=== PATIENT | female | born 1965 | race Caucasian/White ===

== ENCOUNTER 2016-09-07 11:37 | Inpatient (IN) | payer OTHER ==
--- NOTE | ~2016-09-07 | OP ---
Record Of Operation [facility] [address] [place]. [address] NAME: YAW BOOKER : 63 STATUS : ADM IN PAT#: [id number] AGE: 51 ADM/REG DATE : 09/07/16 MR#: [id number] REPORT SERV DATE: 09/12/16 DICTATED BY: BEBE CORTEZ DATE: 09/12/16 REPORT STATUS : Draft TRANSCRIBED BY: MODL DATE: 09/12/16 DATE OF PROCEDURE: 09/12/2016 PROCEDURE: Cardiopulmonary resuscitation. INDICATION FOR PROCEDURE: The patient was found choking and altered by the nursing staff, joann blue was called. PROCEDURE NOTE: Joann pearce was called and MD arrival was almost immediate at 8:20 in the morning. At that time, the patient had sinus rhythm, pulse of 80, and about 96% saturation. The patient was then suctioned from the mouth. There was significant amount of breakfast at the back of the throat. After about a minute and half, we were able to clear the throat, Ambu bag mask ventilation was given. The patient never lost a pulse. Her heart rate stayed around 70s throughout the procedure. After she had an arterial blood gas done which showed that the pH was 7.27, pCO2 of 12.7, pO2 was 269. The patient was transferred down to the CT scanner for stat head and chest in case the patient aspirated and/or had a stroke as the patient had on report by the nursing staff a change in mental status prior to this due to hypoglycemia. Down in the CT scanner, at 8:45, the patient was noted to go into a seizure, the patient was intubated by Dr. Blair with a size 7.5 ET tube and was given 4 mg of Ativan, supervised by the MD staff for acute seizure. The patient never lost a pulse throughout the procedure either through intubation and/or cardiopulmonary resuscitation. The patient was transferred to the intensive care unit. OUTCOME: Successful respiratory resuscitation of this patient. The patient sustained a seizure throughout the course and required intubation. Increased level of care to ICU level from floor. LUIS FQ/TYLOR Bebe Cortez MD / [id number] CC: Colleen Noble M.D.
--- NOTE | ~2016-09-07 | CN ---
Consultation Report [facility] [address] [place]. [address] NAME: YAW BOOKER : 63 STATUS : ADM IN PAT#: [id number] AGE: 51 ADM/REG DATE : 09/07/16 MR#: [id number] REPORT SERV DATE: 09/09/16 DICTATED BY: VIDHYA TAVERA III DATE: 09/08/16 REPORT STATUS : Draft TRANSCRIBED BY: MODYannick DATE: 09/08/16 DATE OF CONSULTATION: 09/08/2016 HISTORY OF PRESENT ILLNESS: The patient is a 51-year-old obese, diabetic white female with what she says is a three-to four-month history of ulcer development in her left foot in the area from previous transmetatarsal amputation, which was done secondary to severe infection and osteomyelitis in the past. She is very neuropathic and her diabetic control has been extremely poor. The patient has been followed by a member service representative named Dr. Stewart for the last few months and has not been successful in healing her ulceration. The patient had very little pain, but noted fever and swelling in the distal left foot, as well as in her lower extremities bilaterally. PAST MEDICAL HISTORY: She has had a history of seizures, followed by Dr. Holly Rios; history of hypertension, history of severe diabetes, very poorly controlled, and history of hypothyroidism. She had the transmetatarsal amputation back in the summer of 2014 and the wound did heal completely and she was discharged from the wound healing clinic after complete healing of the wound to be followed up by her primary care physician. Apparently, she grew Pseudomonas and Enterococcus and a culture done earlier this month. Unremarkable other than the items stated. MEDICATIONS: The patient is presently on vancomycin and Zosyn. ALLERGIES: THE PATIENT DENIES ALLERGIES, ALTHOUGH THERE WAS SOME QUESTION THAT SHE MIGHT HAVE A SULFA ALLERGY. SOCIAL HISTORY: She lives alone, but has friends who help her. She does not smoke or drink or use illegal drugs, but has limited mental capacity. FAMILY HISTORY: Was not contributory. REVIEW OF SYSTEMS: Consistent with what she says is a fairly stable weight and she is able to walk with her transmetatarsal amputation and has been walking recently and has a special shoe which had been provided for her to assist. She uses a cane or walker and wheelchair to assist her with ambulation. PHYSICAL EXAMINATION: GENERAL: The patient is a well-developed female, in no distress. She is alert and oriented and is a very poor historian. VITAL SIGNS: Unremarkable with her T-max of 99.8 since admission. HEENT: Unremarkable. NECK: Supple. CHEST: Relatively clear with diminished inspiratory effort. Consultation Report [facility] [address] [facility] [address] NAME: YAW BOOKER : 63 STATUS : ADM IN [facility]#: [id number] AGE: 51 ADM/REG DATE : 09/07/16 MR#: [id number] REPORT SERV DATE: 09/09/16 DICTATED BY: VIDHYA TAVERA III DATE: 09/08/16 REPORT STATUS : Draft TRANSCRIBED BY: TYLOR DATE: 09/08/16 HEART: Regular rate and rhythm. ABDOMEN: Obese and nontender. EXTREMITIES: Her right foot to be unremarkable with the exception of neuropathy with good pulses. The left foot shows a past surgical history with a modified transmetatarsal amputation, which was done in an oblique fashion secondary to progressed osteomyelitis in the more lateral metatarsals necessitating the amputation more proximally on the lateral aspect, but she has an ulceration in the central portion of the transmetatarsal incision that is otherwise well healed except for the ulcerated area. The ulcer in the central portion of this fairly thick callused tissue is 0.9 x 0.7 with a 0.8 depth, filled with a fair amount of slough. She had significant neuropathy with no tenderness and good pulses. She also, over the left anterior ankle and foot, has some abrasions that are red and two different linear transverse areas presumably from bandages or braces or her footwear that are not ulcerated, but clearly areas of abrasion and pressure change. These areas are most proximal with just at the level of the malleolus, which was on the anterior surface that was 3.5 x 6 cm and one distal more over the crease between the ankle and the foot dorsally that was 2.9 x 7.5, neither of which has a depth due to superficiality. IMPRESSION: The patient has a chronic ulceration in the transmetatarsal amputation site of the left foot likely related to osteomyelitis in a patient with poor control questionable nutritional status and MRI has been ordered and is pending. The MRI will help determine what further steps may need to be taken. In the mean time, we will order Iodosorb gel to place in the ulcer and pack with Aquacel and Silvadene to apply to the abraded areas over the anterior ankle foot region. The patient will require continued antibiotics based on the cultures which have been followed by the infectious disease service, Dr. Tejinder Menjivar, better diabetic control and local care, as well as potential debridement which will be determined by the findings of the MRI. RB/MODL Vidhya Tavera III, M.D. / [id number] CC: Estefania Valle M.D. [facility]
--- NOTE | ~2016-09-07 | OP ---
Record Of Operation [facility] [address] [place]. [address] NAME: YAW BOOKER : 63 STATUS : ADM IN [facility]#: [id number] AGE: 51 ADM/REG DATE : 09/07/16 MR#: [id number] REPORT SERV DATE: 09/12/16 DICTATED BY: JED BLAIR DATE: 09/12/16 REPORT STATUS : Draft TRANSCRIBED BY: MODL DATE: 09/12/16 DATE OF PROCEDURE: 09/12/2016 PROCEDURE: Intubation. INDICATION: Respiratory arrest. DESCRIPTION OF PROCEDURE: Pre-oxygenated with 100% oxygen and monitored by blood pressure, EKG, and pulse oximetry. A #7.5 endotracheal tube placed under direct laryngoscope vision to 21 cm. Tube seen to enter between cords. Confirmed by end-tidal CO2 monitor. Good breath sounds bilaterally. CT scan of chest showed tube at right mainstem bronchus, pulled back 2 cm. Repeat chest x-ray pending. RODERICK/TYLOR Jed Blair M.D. / [id number] CC: Colleen Noble M.D.
--- NOTE | ~2016-09-07 | IDS ---
Interim Discharge Summary [facility] [address] [place]. [address] NAME: YAW DEMPSEY : 63 STATUS : ADM IN PAT#: [id number] AGE: 51 ADM/REG DATE : 09/07/16 MR#: [id number] REPORT SERV DATE: 09/19/16 DICTATED BY: TORY GIVENS DATE: 09/19/16 REPORT STATUS : Draft TRANSCRIBED BY: TYLOR DATE: 09/19/16 ADMISSION DATE: 09/07/2016 DISCHARGE DATE: This interim discharge summary covers the period of hospitalization in the intensive care unit. Please see Dr. Colleen Noble's H and P notes prior to transfer to the ICU on 09/12/2016. Briefly, Ms. Dempsey is a 51-year-old lady with underlying history of developmental delay and poorly-controlled diabetes mellitus with complications of neuropathy, recurrent diabetic foot infections, status post transmetatarsal amputation in late summer of 2014 with incomplete wound healing. Since that time, she is followed by Podiatry as an outpatient and has had multiple cultures done growing Pseudomonas and Enterococcus in the past. She has also had a beta-hemolytic Strep and multiple gram-negative rods in recent cultures. She was actually admitted for incision and drainage of left foot wound and was seen by Infectious Disease, Dr. Menjivar, and was out on the floor under the care of Dr. Noble and developed acute respiratory distress after probably aspirating on some food she was eating. The Viry Blue was called and Dr. Blair responded, urgently intubated her, and she was transferred to the intensive care unit. Please see Dr. Blair's dictations and handwritten progress notes from 09/12/2016 through yesterday for additional details. Complications for ICU stay have included development of an ileus, for which she has had an NG tube placed and has been undergoing bowel rest. She was started on a Cardene drip for hypertension as she was not able to take her p.o. medications. She is now extubated, tolerating high-flow nasal oxygen, which was felt secondary to aspiration versus mild volume overload and is moving to the intermediate care unit. Active problem list at this point: 1. Acute hypoxemic respiratory failure, status post code blue, 09/12, likely secondary to food aspiration. She was intubated and extubated on the same day and is now on high- flow nasal cannula. 2. Acute encephalopathy which is improving. Of note, she does have underlying developmental delay. 3. Sepsis secondary to left foot infection plus or minus aspiration pneumonia, status post I and D of 09/09. Her blood cultures were positive for the same organisms that were in foot culture and ID has been following her. 4. Ileus. She has an NG tube which has had significant output, although she does seem to be improving. She has had two bowel movements in the last 24 hours. We will clamp the NG tube and keep her n.p.o. with a plan to remove NG tube tomorrow if she remains clinically stable and her abdominal exam is unchanged. 5. Hypertension. She was taking p.o. antihypertensives with good control until developing the ileus and was then placed on Cardene by Dr. Blair as well as scheduled hydralazine and metoprolol IV. She has been weaned off the Cardene at this point, and we will leave it on her MAR for p.r.n. use until she is able to tolerate oral antihypertensives again. 6. Uncontrolled diabetes mellitus with A1c of 12.1. She is on sliding scale only while n.p.o. with a blood glucose goal of 140 to 180 while critically ill. Interim Discharge Summary [address] [address] NAME: YAW DEMPSEY : 63 STATUS : ADM IN [facility]#: [id number] AGE: 51 ADM/REG DATE : 09/07/16 MR#: [id number] REPORT SERV DATE: 09/19/16 DICTATED BY: TORY GIVENS DATE: 09/19/16 REPORT STATUS : Draft TRANSCRIBED BY: MODL DATE: 09/19/16 7. Hypothyroidism, on Synthroid. 8. Chronic kidney disease with baseline creatinine between 1 and 1.5. 9. Seizure disorder, controlled on phenytoin. 10.Chronic anxiety. 11.Prophylaxis. She is on subcutaneous heparin and Pepcid. 12.She has a right PICC line. 13.The patient is being transferred to the Intermediate Care Unit for ongoing management. She has morning labs ordered for tomorrow. The hospitalist navigator has been notified, and we will also have case management and social work to get involved if she does need assistance with establishing clear medical decision maker as she lives independently and most of her family is out of town. She has a significant amount of social support from her amish members. Please call with questions. LIV/TYLOR Tory Givens MD / [id number] CC: Bruno Blair M.D.
--- NOTE | ~2016-09-07 | CN ---
Consultation Report [facility] [address] [place]. [address] NAME: YAW BOOKER : 63 STATUS : ADM IN [facility]#: [id number] AGE: 51 ADM/REG DATE : 09/07/16 MR#: [id number] REPORT SERV DATE: 09/08/16 DICTATED BY: NAM HINKLE DATE: 09/08/16 REPORT STATUS : Draft TRANSCRIBED BY: MODL DATE: 09/08/16 INFECTIOUS DISEASE CONSULT DATE OF CONSULTATION: REASON FOR REFERRAL: Evaluation and treatment of diabetic foot infection. HISTORY OF PRESENT ILLNESS: The patient is a 51-year-old female. She has a history of diabetes that has been poorly controlled in the past. She has had peripheral neuropathy and diabetic foot infection as a problem on the left foot for some time. This led to transmetatarsal amputation in 01/2015-02/2015 and per the history, the wound from that has never completely healed. Recently, she has been followed by Podiatry in getting regular wound care for that but it has begun to look worse. A culture was done on it on 08/30 that grew a light growth of Pseudomonas and a light growth of Enterococcus. Cannot ascertain from the records that it was ever treated with any antibiotics prior to now and the patient herself does not know. She has peripheral neuropathy so feels very little pain or discomfort in it. She reports no known fevers or chills or other systemic symptoms. She was admitted last evening, culture of it was done and that shows what appears to be a beta- hemolytic Strep and two different gram-negative rods, one of which is probably the Pseudomonas but nothing that looks like Staph. There is no history of trauma or unusual environmental exposures. PAST MEDICAL HISTORY: Otherwise unremarkable. MEDICATIONS: She has been started on vancomycin and Zosyn. ALLERGIES: SHE HAS ALLERGY REPORTED ON HER RECORD HERE TO SULFA WHICH CAUSES A RASH. SOCIAL HISTORY: She lives alone but has friends to help her. Nonsmoker. No history of alcohol or substance abuse. FAMILY HISTORY: Noncontributory. PHYSICAL EXAMINATION: GENERAL: Nontoxic, adult, female, in no acute distress. She is awake and alert. Speaks hesitantly and does not seem to know her history very well. VITAL SIGNS: Temperature presently 98.6, the high last night was 99.8, at admission pulse 74, respirations 18, blood pressure 130/62, weight 98 kg. HEENT: Sclerae are clear. No oropharyngeal lesions. NECK: Supple. LUNGS: Clear. HEART: Regular rate and rhythm. ABDOMEN: Soft, nontender. Positive bowel sounds. EXTREMITIES: The left foot has past surgery of transmetatarsal amputation. The distal foot Consultation Report [facility] [id number] [place]. [address] NAME: YAW BOOKER : 63 STATUS : ADM IN [facility]#: [id number] AGE: 51 ADM/REG DATE : 09/07/16 MR#: [id number] REPORT SERV DATE: 09/08/16 DICTATED BY: NAM HINKLE DATE: 09/08/16 REPORT STATUS : Draft TRANSCRIBED BY: TYLOR DATE: 09/08/16 is warm and red. There is an open wound with purulent drainage and foul odor associated with it but no real pain with palpation. No other extremity lesions are noted. LABORATORY DATA: Her white blood cell count was 9.3 on admission, 8.6 today with hematocrit 35.8, platelets 139, unremarkable differential. BUN and creatinine are 36 and 1.55. IMPRESSION: A progressing infection in the foot remnant in a patient with poorly controlled diabetes. It is clearly infected and likely deep and in the bone but that is uncertain at present until we get more information from imaging. Cultures so far show Enterococcus Pseudomonas preadmission and likely Pseudomonas and Strep now but no evidence of Staph aureus so far. RECOMMENDATIONS: 1. We will continue the Zosyn, should cover all the isolated pathogens and stop the vancomycin. 2. Followup the MRI depending on the extent whether bone is involved and the heel bones. She may need a below-knee amputation. 3. I will follow the patient with you. I appreciate very much your consulting on this patient. LINDA Nam Hinkle M.D. / [id number] CC: Colleen Noble M.D.
--- NOTE | ~2016-09-07 | OP ---
Record Of Operation [facility] [address] [place]. [address] NAME: YAW BOOKER : 63 STATUS : ADM IN PAT#: [id number] AGE: 51 ADM/REG DATE : 09/07/16 MR#: [id number] REPORT SERV DATE: 09/09/16 DICTATED BY: VIDHYA TAVERA III DATE: 09/09/16 REPORT STATUS : Draft TRANSCRIBED BY: MODL DATE: 09/09/16 DATE OF PROCEDURE: 09/09/2016 PREOPERATIVE DIAGNOSIS: Chronic ulcer of the left foot on the plantar surface underneath a previous transmetatarsal amputation incision that was otherwise well healed. The patient also was noted to have osteomyelitis involving the entire second metatarsal bone on MRI which was reviewed with radiologist. The patient is a diabetic in poor control with limited mental capacity. POSTOPERATIVE DIAGNOSIS: Chronic ulcer of the left foot on the plantar surface underneath a previous transmetatarsal amputation incision that was otherwise well healed. The patient also was noted to have osteomyelitis involving the entire second metatarsal bone on MRI which was reviewed with radiologist. The patient is a diabetic in poor control with limited mental capacity. PROCEDURE ON THE PATIENT: Exploration of the ulcer the left plantar surface of foot with extensive wide resection of soft tissues and removal of the entire second metatarsal by disarticulation. Platelet rich plasma injection was used as a supplement at the conclusion of the complex closure which was accomplished after the dissection had been completed. SURGEON: Vidhya Tavera M.D. MEDICAL RECORDS ANALYST: Cindy Tavera R.N. [facility] ANESTHESIA: General with endotracheal tube. ESTIMATED BLOOD LOSS: 50 to 60 mL. COMPLICATIONS: There were no complications. FLUIDS: 800 mL of crystalloid were given. DESCRIPTION OF PROCEDURE: The patient was brought into the operating suite, time-out called with discussion amongst the staff about plans for the patient surgery including the platelet rich plasma which was obtained by Anesthesia by phlebotomy. The time-out being completed, the area was prepped and draped in routine fashion prepping out the entire left foot. The patient had a previous modified transmetatarsal amputation. There was an ulceration that was about 1 x 1 cm on the distal most plantar aspect of her foot with tracking up into the foot with ballotable bone. An ellipsing incision was used to remove the ulceration and extended from this plantar surface all the way up on to the dorsum of the foot where the soft tissue was extremely fused within the plantar space and the second metatarsal bone identified and removed by blunt and sharp dissection. The periosteum was stripped away with the periosteal elevator. Disarticulation at the cuneiform level was accomplished with moderate difficulty. The area was controlled with hemostasis with the cautery and the irrigated with pulse lavage. No culture and sensitivity were done since we had a fresh culture recently available. Record Of Operation [address] [address] NAME: YAW BOOKER : 63 STATUS : ADM IN PAT#: [id number] AGE: 51 ADM/REG DATE : 09/07/16 MR#: [id number] REPORT SERV DATE: 09/09/16 DICTATED BY: VIDHYA TAVERA III DATE: 09/09/16 REPORT STATUS : Draft TRANSCRIBED BY: TYLOR DATE: 09/09/16 The area was then inspected, hemostasis achieved. Small pledgets of Surgicel placed in the apex of the cavity from the metatarsectomy. The platelet rich plasma was instilled about 5 mL at the time of closure and the closure accomplished using complex technique. A 0 Vicryl undyed suture was then used placed in direct visualization to close the deep tissues at previous bed of the metatarsal bone. These were all tied down after placement of the second layer with 0 Vicryl was then placed in the fascial layers. The subcutaneous tissue was closed with interrupted 2-0 Vicryl, the skin closed interrupted with alternating 0 and 2-0 Prolene sutures as a vertical mattress suture simple technique. Wound was then dressed with Acticoat material and bulky Kerlix dressing. The patient is to have nonweightbearing and will be followed in the clinic after her discharge. RB/TYLOR Vidhya Tavera III, M.D. / [id number] CC: Colleen Noble M.D.
--- NOTE | ~2016-09-07 | IDS ---
Interim Discharge Summary [facility] [address] [place]. [address] NAME: YAW BOOKER : 63 STATUS : ADM IN [facility]#: [id number] AGE: 51 ADM/REG DATE : 09/07/16 MR#: [id number] REPORT SERV DATE: 09/12/16 DICTATED BY: LAMAR CORDOBA DATE: 09/12/16 REPORT STATUS : Draft TRANSCRIBED BY: MODL DATE: 09/12/16 ADMISSION DATE: 09/07/2016 DISCHARGE DATE: DIAGNOSES: So far include, 1. Acute respiratory arrest probably secondary to aspiration from food - the patient has been intubated for respiratory support. The patient is in MICU currently on ventilator. 2. Seizure disorder - the patient suffered another seizure during the resuscitative process and Neurology consultation will be obtained per critical care physician. The patient has a history of seizure disorder any ways, but the patient has not had a seizure in the last 10 or 12 years and she has not been on any medications for this. The patient's main reason for hospitalization this time was cellulitis and osteomyelitis of the left foot stump. The patient has already had left forefoot amputation in the past and came in this time with left second toe osteomyelitis. ID was consulted and Orthopedic Surgery was consulted. Dr. Tavera was the orthopedic surgeon, who performed debridement and disarticulation of the second metatarsal bone for osteomyelitis in this patient and this happened on 09/09/2016. This patient is very noncompliant with diabetes and insulin. She came with an A1c of almost 12.2, and all features of uncontrolled diabetes including peripheral neuropathy and also nephropathy with chronic kidney disease stage 3 with a baseline creatinine of 1.5. Apparently, the patient has no family or is estranged from family and the only visitors to the patient have been her friends from [place]. Anyway, the patient was doing well until 09/12/2016 morning. She had underwent the second left metatarsal disarticulation and debridement and regarding her infection and osteomyelitis in the left foot; she was doing really well. Her diabetes was better controlled with high dose of Levemir insulin and also sliding scale insulin. Her requirements were almost 80 to 100 units of Levemir twice a day along with sliding scale and despite that her blood glucose levels were fluctuating and extremely high all this while. Infectious Disease was consulted during this hospitalization for blood cultures x2 positive for group B Streptococcus and also wound culture positive for group B Streptococcus and mild growth of Pseudomonas. The patient has been on IV Zosyn for this and has been doing well. However, on the morning of 09/12/2016, a code was called on this patient as she was eating her food and she was found to be laying in bed, choked on a piece of bread and she was in agonal respirations. The patient had to be intubated as she was in respiratory arrest at this time and most likely this arrest was secondary to aspiration of food. The patient is currently in the CCU being intubated for respiratory arrest probably from acute choking episode and also had a seizure episode during the code process itself. Further management of this patient will be by early intervention specialist and pc support specialist at this time. ID continues to follow the patient. The patient also is being followed by Dr. Tavera for the left foot osteomyelitis. Interim Discharge Summary [address] [address] NAME: YAW BOOKER : 63 STATUS : ADM IN [facility]#: [id number] AGE: 51 ADM/REG DATE : 09/07/16 MR#: [id number] REPORT SERV DATE: 09/12/16 DICTATED BY: LAMAR CORDOBA DATE: 09/12/16 REPORT STATUS : Draft TRANSCRIBED BY: TYLOR DATE: 09/12/16 I have transferred care of this patient to critical care on 09/12/2016. BERTA/TYLOR Lamar Cordoba M.D. / [id number] CC: Lamar Cordoba M.D.
--- NOTE | ~2016-09-07 | HP ---
History And Physical [place] [address] [facility] [place]. [address] NAME: YAW BOOKER : 63 STATUS : ADM IN [facility]#: [id number] AGE: 51 ADM/REG DATE : 09/07/16 MR#: [id number] REPORT SERV DATE: 09/07/16 DICTATED BY: KAYLA SARABIA DATE: 09/07/16 REPORT STATUS : Draft TRANSCRIBED BY: MODYannick DATE: 09/07/16 DATE OF ADMISSION: 09/07/2016 CHIEF COMPLAINT: Infected diabetic foot. HISTORY OF PRESENT ILLNESS: This is a 51-year-old female with a past medical history of uncontrolled type 2 diabetes and a history of some osteomyelitis with diabetic foot infection of the left foot, status post [place]metatarsal [place] [address] Gaudencio Tavera. The patient is being followed by home health administrator, Dr. Peter Stewart, as an outpatient. According to the patient and friend since the surgery the patient has not had complete healing of the wound and has been treated as an outpatient. However, the patient has had increased pain of the foot but denies any subjective fever or chills. Denies any worsening induration. Denies any erythema. States that her blood sugars have been ranging usually in the 200s, but over the past several weeks, has been in the 300s. The patient also states that she is not compliant with a diabetic diet and does eat sugary foods occasionally. She was seen by her home health administrator today and was referred to the hospital for admission for IV antibiotics for worsening wound infection with need for possible surgical intervention. The patient denies any chest pain. No shortness of breath. No nausea or vomiting. No abdominal pain. She does have two friends at the bedside who help to assist the patient at home, and the patient gave verbal consent to allow Natty Garcia information on her medical care. The patient was seen in the ER by Dr. Sada Yarbrough who ordered a repeat wound culture, although the patient has had a recent wound culture in the home health administrator's office from 08/30/2016 that grew out enterococcus and Pseudomonas. The ER called the Hospitalist Service for admission. REVIEW OF SYSTEMS: Please refer to HPI. PAST MEDICAL HISTORY: 1. Uncontrolled type 2 diabetes. 2. Diabetic foot ulcer with osteomyelitis of the left foot, status post transmetatarsal amputation in 2014. 3. Cellulitis. 4. Positive COLT. 5. Neuropathy. 6. Seizure disorder. 7. Hypertension. 8. Hyperlipidemia. 9. CKD. PAST SURGICAL HISTORY: As mentioned above. SOCIAL HISTORY: No tobacco, alcohol, or illicit drugs. Lives at home alone. Uses a cane but has a supportive care from friend. History And Physical [place] [address] [place]. [address] NAME: YAW BOOKER : 63 STATUS : ADM IN [facility]#: [id number] AGE: 51 ADM/REG DATE : 09/07/16 MR#: [id number] REPORT SERV DATE: 09/07/16 DICTATED BY: KAYLA SARABIA DATE: 09/07/16 REPORT STATUS : Draft TRANSCRIBED BY: TYLOR DATE: 09/07/16 FAMILY HISTORY: Type 2 diabetes and CAD. ALLERGIES: NO KNOWN ALLERGIES. HOME MEDICATIONS: Please refer to home medication list in [facility], pharmacist reviewed. PHYSICAL EXAMINATION: VITAL SIGNS: Temp of 99.8, blood pressure 175/92 with a pulse of 112, respiration of 16, and saturating 98% on room air. GENERAL: The patient is alert and oriented. Currently in no distress, very pleasant, obese. HEENT EXAM: Pupils equal, round, and reactive to light. Extraocular muscles are intact. Dry mucous membranes. CARDIOVASCULAR: S1, S2 positive. Tachycardia. No appreciated murmurs, rubs, or gallops. No JVD. RESPIRATORY: Clear to auscultation bilaterally. No wheezes or crackles. No signs of tachypnea. ABDOMEN: Positive bowel sounds. Soft, nontender. No rebound. No fluid wave. No distention. Positive obesity. EXTREMITIES: The patient with bilateral trace of edema. She had a left foot with post surgical transmetatarsal amputation with approximately dime-sized open wound at the plantar surface with malodorous/anaerobic smell with penetration with surrounding mild induration and very mild erythema. Warm lower extremities. NEUROLOGIC: Cranial nerves II through XII grossly intact. Moves all four extremities. No neuro focal deficits. IMAGING: Scan, please see above. LABS: Sodium 133, potassium 4.5, chloride of 99, bicarb of 25, BUN of 33, creatinine 1.55 with a glucose of 336. T-bilirubin is 0.3 with an alkaline phosphatase of 158. ALT of 19, AST of 8. Lactate of 1.4. White count of 9.3 with a hemoglobin of 13.3, platelet count 151. UA cloudy, specific gravity 1.021, negative nitrites, negative leukocyte esterase, 3 white blood cells. ASSESSMENT AND PLAN: 1. Infected diabetic foot ulcer. 2. Uncontrolled type 2 diabetes. 3. Hypertension. 4. Chronic kidney disease. 5. The patient will be admitted to the Hospitalist Service and will be admitted to Dr. Bruno Santos. We will follow up with repeat wound cultures and following the blood cultures also, we will check MRI of the foot to rule out any underlying osteomyelitis. Also, we will continue with broad-spectrum IV antibiotics and consult Infectious Disease specialist for assistance and also we will consult Dr. Gaudencio Tavera, who is well known to the patient. Also, we will consult certified diabetes educator. The patient has been educated at bedside on admission about compliance with ADA diet and for the better blood sugar control. The patient will require further educating. History And Physical [address] [address] NAME: YAW BOOKER : 63 STATUS : ADM IN [facility]#: [id number] AGE: 51 ADM/REG DATE : 09/07/16 MR#: [id number] REPORT SERV DATE: 09/07/16 DICTATED BY: KAYLA SARABIA DATE: 09/07/16 REPORT STATUS : Draft TRANSCRIBED BY: TYLOR DATE: 09/07/16 6. The patient will be admitted to the Hospitalist Service with Dr. Santos. [facility]/TYLOR Kayla Sarabia M.D. / [id number] CC: Juan Diego Velasquez MD
--- NOTE | ~2016-09-07 | DS ---
Discharge Summary [facility] [address] [place]. [address] NAME: YAW BOOKER : 63 STATUS : DIS IN PAT#: [id number] AGE: 51 ADM/REG DATE : 09/07/16 MR#: [id number] REPORT SERV DATE: 09/27/16 DICTATED BY: BARON PARMAR DATE: 09/22/16 REPORT STATUS : Draft TRANSCRIBED BY: MODL DATE: 09/22/16 ADMISSION DATE: 09/07/2016 DISCHARGE DATE: DISCHARGE DIAGNOSES: 1. Acute hypoxemic respiratory failure, status post code blue on 09/12/2016 likely secondary to food aspiration. 2. Acute encephalopathy, now back to baseline. 3. Sepsis secondary to left foot infection with Streptococcus agalactiae in the blood, currently resolved. 4. Ileus, now resolved. 5. Hypertension. 6. Uncontrolled type 2 diabetes mellitus. 7. Hypothyroidism. 8. Chronic kidney disease with a baseline creatinine of 1 to 1.5. 9. Seizure disorder. 10.Chronic anxiety. 11.Mild mental retardation. CONSULTANTS DURING THIS HOSPITALIZATION: 1. Dr. Tejinder Menjivar of Infectious Disease. 2. Dr. Gaudencio Tavera, of Wound Care Surgery and General Surgery. INVASIVE PROCEDURES DONE DURING THIS HOSPITALIZATION: Transmetatarsal amputation, an incision due to osteomyelitis of the left foot. Mechanical ventilation and intubation. BRIEF HISTORY OF PRESENT ILLNESS: The patient is a 51-year-old white female with uncontrolled type 2 diabetes with osteomyelitis of the diabetic foot and presented with infection of the foot, so she was admitted. For detailed history and physical exam, please see note dictated by Dr. Devorah Ellsworth on 09/07/2016. HOSPITAL COURSE: After being admitted to the hospital, this patient was seen by appropriate consultants; please refer to consulting notes by Dr. Menjivar and Dr. Gaudencio Tavera. The patient was initially cared for by Dr. Colleen Noble, please refer to interim summary dictated by Dr. Noble. On 09/12/2016, this patient had food aspiration and had acute hypoxemic respiratory failure and had to be intubated and transferred to the intensive care unit; please refer to interim summary dictated by Dr. Tory Taylor on 09/19/2016. This patient then was transitioned to the intermediate care unit on 09/19/2016, and the patient was seen by Dr. Patrick, who continued to monitor and we advanced her diet slowly. Her ileus resolved and she was transitioned out of the intermediate care unit to the floor. I took over this patient's care on 09/21/2016. This patient was doing fairly well. She was still requiring about 3 to 4 L of O2 and satting about 94%. She did have some crackles. She was given IV doses of Lasix, which continues to improve her overall function. Her kidney function has remained stable. Dr. Tejinder Menjivar saw the patient in followup and signed off, and no further antibiotics were required for treatment. She has continued to get wound care post her amputation and needs further treatment for her wound and her respiratory status in Discharge Summary [address] [place]. [address] NAME: YAW BOOKER : 63 STATUS : DIS IN PAT#: [id number] AGE: 51 ADM/REG DATE : 09/07/16 MR#: [id number] REPORT SERV DATE: 09/27/16 DICTATED BY: BARON PARMAR DATE: 09/22/16 REPORT STATUS : Draft TRANSCRIBED BY: TYLOR DATE: 09/22/16 a penitentiary-type facility as well as rehab. This patient medically remained stable and is being discharged to penitentiary facility for recovery and recuperation and rehab. This patient was kept an extra day in the hospital because she did not get her PASRR approved from the state. Today, we have a PASRR approval, and the patient remains in stable condition and is able to go to penitentiary facility for rehab. No other changes were made, and she will continue on the same therapy as yesterday. DISCHARGE DISPOSITION: To penitentiary facility. DISCHARGE ACTIVITY: Per facility. DISCHARGE DIET: 1800-calorie [employer] diet. DISCHARGE MEDICATIONS: Aspirin 81 mg once every morning, diltiazem CD 240 mg twice daily, Toujeo 140 units subcu daily, Levemir 80 units subcu twice daily, levothyroxine 100 mcg once daily, Prinzide 20/12.5 one tablet daily, Lopressor 100 mg twice daily, Dilantin 200 mg every morning and 300 mg at bedtime, Aldactone 25 mg once daily, Silvadene cream to the abrasions on the legs, DuoNeb once every four hours, hydrocodone 5/325 one tablet every four hours for pain, metformin 850 mg p.o. twice daily, Senokot two tablets at bedtime p.r.n., Victoza 1.2 mg subcu daily, Starlix 120 mg three times daily prior to each meal, Crestor 40 mg once at bedtime, amlodipine 10 mg once every morning, timolol eye drops as directed, Travatan eye drops as directed. DISCHARGE FOLLOWUP: With the patient's primary care physician post discharge; with Dr. Gaudencio Tavera, in the [facility] post discharge from penitentiary facility. More than 35 minutes spent planning this patient's discharge, reconciling medications, writing prescriptions, discussing hospital care, and arranging proper discharge as well as documenting this discharge. QUITA/TYLOR Baron Parmar M.D. / [id number] / [id number] CC: Estefania Jarvis III, M.D.
[~2016-09-07 11:37] MED LIST: AUG875 PO; BACDS PO; BETIMOL0.5 % OPH; CARTIA XT240 MG/24 PO; CHOLESTEROL MED; CRESTOR40 MG PO; D100 PO; DSS PO; GLUCPH8 PO; HUMULIN SC; LEVEMFLXPN SC; LOP100 PO; MAGOX4 PO; NORV5 PO; NOVOLOG SC; PHENYTEK200 MG PO; PHENYTEK300 MG PO; TIMOLOL MAL0.5 % OPH; TRAVATAN Z0.004 % OPH; VITAMIN D31000 UNIT PO; ZESTORETIC PO
[2016-09-07 16:57] LABS: BASOPHILS 0.2 %; BASOPHILS ABSOLUTE 0.02 10/3/uL (0.0-0.16); EOSINOPHILS 0.4 %; EOSINOPHILS ABSOLUTE 0.04 10/3/uL (0.0-0.53); ER CBC TAT 0 Hrs 07 Mins; HEMATOCRIT 38.4 % (36.0-48.0); HEMOGLOBIN 13.3 g/dL (12.0-16.0); IMMATURE GRANULOCYTES 0.2 %; IMMATURE GRANULOCYTES ABSOLUTE 0.02 10/3/uL (0.0-0.11); LYMPHOCYTES 10.1 %; LYMPHOCYTES ABSOLUTE 0.94 10/3/uL (0.67-4.30); MEAN CORPUS HGB CONC 34.6 g/dL (32.0-36.0); MEAN CORPUSCULAR HEMOGLOB 29.2 pg (26.0-34.0); MEAN PLATELET VOLUME 8.9 fL (9.2-13.0); MONOCYTES 7.7 %; MONOCYTES ABSOLUTE 0.72 10/3/uL (0.21-1.20); NEUTROPHILS 81.4 %; NEUTROPHILS ABSOLUTE 7.56 10/3/uL (2.02-8.40); PLATELET COUNT 151 10/3/uL (150-400); RBC DISTRIBUTION WIDTH 13.7 % (12.0-16.0); RED CELL COUNT 4.55 10/6/uL (4.0-5.6); WHITE BLOOD CELLS 9.3 10/3/uL (4.5-10.5)
[2016-09-07 16:59] LABS: MANUAL DIFF NO %; MEAN CORPUSCULAR VOLUME 84.4 fL (80-100)
[2016-09-07 17:11] LABS: BUN (BLOOD UREA NITROGEN) 33 MG/DL (6-23); CHLORIDE, SERUM 99 MMOL/L (96-112); CO2 (CARBON DIOXIDE) 25 MMOL/L (24-34); CREATININE 1.55 MG/DL (0.55-1.02); GFR AFRICAN AMERICAN 44 ML/MIN (>=60); GFR NON AFRICAN AMERICAN 38 ML/MIN (>=60); POTASSIUM, SERUM 4.5 MMOL/L (3.5-5.3); SGOT(AST) 8 U/L (5-40); SGPT(ALT) 19 U/L (5-65); SODIUM, SERUM 133 MMOL/L (135-148); TOTAL BILIRUBIN 0.3 MG/DL (0-1.2)
[2016-09-07 17:13] LABS: A/G RATIO 0.6 (0.7-1.9); ALKALINE PHOSPHATASE 158 U/L (45-117); DIRECT BILIRUBIN < 0.1 MG/DL (0.0-0.4); GLUCOSE, SERUM 336 MG/DL (60-99); INDIRECT BILIRUBIN(NOT ORDER) 0.2 MG/DL (0.1-0.9)
[2016-09-07 17:15] LABS: LACTATE 1.4 MMOL/L (0.3-2.4)
[2016-09-07 17:17] LABS: ASCORBIC ACID (UR NOT ORDER) NEG (NEG); BILIRUBIN, URINE NEGATIVE (NEG); ER URINALYSIS TAT 0 Hrs 07 Mins; KETONE, URINE NEGATIVE (NEG); LEUKOCYTE ESTERASE(NOT OR NEG (NEG); NITRITE (URINE) NEG (NEG); WBC (NOT ORDERED) (RFLEX) 3 (0-5)
[2016-09-07] MEDS ORDERED: TOUJEO SC (18:06)
[2016-09-07] MEDS ORDERED: VICTOZA18 MG/3 ML SC (18:06)
[2016-09-07] MEDS ORDERED: LEVEMIR SC (18:07)
[2016-09-07] MEDS ORDERED: CARDCD240 PO (18:08)
[2016-09-07] MEDS ORDERED: D100 PO ×2 (18:08)
[2016-09-07] MEDS ORDERED: SPIRO25 PO (18:09)
[2016-09-07] MEDS ORDERED: LEVOTHYROXIN100 MCG PO (18:09)
[2016-09-07] MEDS ORDERED: PRINZIDE1 TA1 PO (18:10)
[2016-09-07] MEDS ORDERED: STARLIX120 PO (18:10)
[2016-09-07] MEDS ORDERED: GLUCPH8 PO (18:11)
[2016-09-07] MEDS ORDERED: LOP100 PO (18:11)
[2016-09-07] MEDS ORDERED: NORV10 PO (18:11)
[2016-09-07] MEDS ORDERED: CRESTOR40 MG PO (18:11)
[2016-09-07] MEDS ORDERED: TIMOLOL MAL0.5 % OPH (18:13)
[2016-09-07] MEDS ORDERED: TRAVATAN Z 0.004% OPH (18:14)
[2016-09-07] MEDS ORDERED: ADVIL PO (18:15)
[2016-09-07] MEDS ORDERED: ASAB PO (18:15)
[2016-09-08 05:18] LABS: BASOPHILS 0.3 %; BASOPHILS ABSOLUTE 0.03 10/3/uL (0.0-0.16); EOSINOPHILS ABSOLUTE 0.09 10/3/uL (0.0-0.53); HEMATOCRIT 35.8 % (36.0-48.0); HEMOGLOBIN 12.2 g/dL (12.0-16.0); IMMATURE GRANULOCYTES 0.3 %; IMMATURE GRANULOCYTES ABSOLUTE 0.03 10/3/uL (0.0-0.11); LYMPHOCYTES ABSOLUTE 1.81 10/3/uL (0.67-4.30); MEAN CORPUS HGB CONC 34.1 g/dL (32.0-36.0); MEAN CORPUSCULAR HEMOGLOB 29.3 pg (26.0-34.0); MEAN CORPUSCULAR VOLUME 85.9 fL (80-100); MEAN PLATELET VOLUME 8.9 fL (9.2-13.0); MONOCYTES 8.4 %; MONOCYTES ABSOLUTE 0.72 10/3/uL (0.21-1.20); NEUTROPHILS ABSOLUTE 5.94 10/3/uL (2.02-8.40); PLATELET COUNT 139 10/3/uL (150-400); RBC DISTRIBUTION WIDTH 13.6 % (12.0-16.0); RED CELL COUNT 4.17 10/6/uL (4.0-5.6); WHITE BLOOD CELLS 8.6 10/3/uL (4.5-10.5)
[2016-09-08 05:19] LABS: MANUAL DIFF NO %
[2016-09-08 05:30] LABS: INTERNATIONAL NORMAL RATI 1.1 UNITS (-); PROTIME (NOT ORD) 14.1 SEC (12.0-14.5)
[2016-09-08 07:37] LABS: BUN (BLOOD UREA NITROGEN) 36 MG/DL (6-23); CALCIUM, SERUM 8.3 MG/DL (8.5-10.4); CHLORIDE, SERUM 103 MMOL/L (96-112); CO2 (CARBON DIOXIDE) 24 MMOL/L (24-34); CREATININE 1.55 MG/DL (0.55-1.02); GFR AFRICAN AMERICAN 44 ML/MIN (>=60); GFR NON AFRICAN AMERICAN 38 ML/MIN (>=60); GLUCOSE, SERUM 172 MG/DL (60-99); SODIUM, SERUM 138 MMOL/L (135-148)
[2016-09-08 10:47] LABS: DILANTIN (PHENYTOIN) 3.4 MCG/ML (10.0-20.0)
[2016-09-10 05:25] LABS: BASOPHILS 0.1 %; BASOPHILS ABSOLUTE 0.02 10/3/uL (0.0-0.16); EOSINOPHILS 0.1 %; EOSINOPHILS ABSOLUTE 0.02 10/3/uL (0.0-0.53); HEMATOCRIT 34.1 % (36.0-48.0); HEMOGLOBIN 11.3 g/dL (12.0-16.0); IMMATURE GRANULOCYTES 0.3 %; IMMATURE GRANULOCYTES ABSOLUTE 0.04 10/3/uL (0.0-0.11); LYMPHOCYTES 9.5 %; LYMPHOCYTES ABSOLUTE 1.28 10/3/uL (0.67-4.30); MEAN CORPUS HGB CONC 33.1 g/dL (32.0-36.0); MEAN CORPUSCULAR VOLUME 87.7 fL (80-100); MEAN PLATELET VOLUME 8.9 fL (9.2-13.0); MONOCYTES 5.5 %; MONOCYTES ABSOLUTE 0.74 10/3/uL (0.21-1.20); NEUTROPHILS 84.5 %; NEUTROPHILS ABSOLUTE 11.44 10/3/uL (2.02-8.40); PLATELET COUNT 176 10/3/uL (150-400); RBC DISTRIBUTION WIDTH 13.3 % (12.0-16.0); RED CELL COUNT 3.89 10/6/uL (4.0-5.6)
[2016-09-10 05:26] LABS: MANUAL DIFF NO %; WHITE BLOOD CELLS 13.5 10/3/uL (4.5-10.5)
[2016-09-10 05:33] LABS: BUN (BLOOD UREA NITROGEN) 37 MG/DL (6-23); CALCIUM, SERUM 8.3 MG/DL (8.5-10.4); CHLORIDE, SERUM 106 MMOL/L (96-112); CO2 (CARBON DIOXIDE) 27 MMOL/L (24-34); CREATININE 1.52 MG/DL (0.55-1.02); GFR AFRICAN AMERICAN 45 ML/MIN (>=60); GFR NON AFRICAN AMERICAN 39 ML/MIN (>=60); POTASSIUM, SERUM 4.6 MMOL/L (3.5-5.3); SODIUM, SERUM 141 MMOL/L (135-148)
[2016-09-10 05:36] LABS: GLUCOSE, SERUM 240 MG/DL (60-99)
[2016-09-12 04:37] LABS: BUN (BLOOD UREA NITROGEN) 36 MG/DL (6-23); CALCIUM, SERUM 8.5 MG/DL (8.5-10.4); CHLORIDE, SERUM 105 MMOL/L (96-112); CO2 (CARBON DIOXIDE) 30 MMOL/L (24-34); CREATININE 1.53 MG/DL (0.55-1.02); GFR AFRICAN AMERICAN 45 ML/MIN (>=60); GFR NON AFRICAN AMERICAN 39 ML/MIN (>=60); SODIUM, SERUM 145 MMOL/L (135-148)
[2016-09-12 04:38] LABS: GLUCOSE, SERUM 42 MG/DL (60-99); POTASSIUM, SERUM 3.6 MMOL/L (3.5-5.3)
[2016-09-12 09:41] LABS: BASOPHILS 0.2 %; BASOPHILS ABSOLUTE 0.02 10/3/uL (0.0-0.16); EOSINOPHILS 1.5 %; EOSINOPHILS ABSOLUTE 0.17 10/3/uL (0.0-0.53); HEMATOCRIT 34.5 % (36.0-48.0); HEMOGLOBIN 11.5 g/dL (12.0-16.0); IMMATURE GRANULOCYTES 0.8 %; IMMATURE GRANULOCYTES ABSOLUTE 0.09 10/3/uL (0.0-0.11); LYMPHOCYTES 11.3 %; LYMPHOCYTES ABSOLUTE 1.26 10/3/uL (0.67-4.30); MEAN CORPUS HGB CONC 33.3 g/dL (32.0-36.0); MEAN CORPUSCULAR VOLUME 87.1 fL (80-100); MEAN PLATELET VOLUME 8.4 fL (9.2-13.0); MONOCYTES 6.2 %; MONOCYTES ABSOLUTE 0.69 10/3/uL (0.21-1.20); NEUTROPHILS ABSOLUTE 8.97 10/3/uL (2.02-8.40); PLATELET COUNT 213 10/3/uL (150-400); RBC DISTRIBUTION WIDTH 13.7 % (12.0-16.0); RED CELL COUNT 3.96 10/6/uL (4.0-5.6); WHITE BLOOD CELLS 11.2 10/3/uL (4.5-10.5)
[2016-09-12 09:48] LABS: MANUAL DIFF NO %
[2016-09-12 10:14] LABS: ALLENS TEST Pos; BE (BASE EXCESS) -1.4 MEQ/L (0 +/- 2.5); CARBOXYHEMOGLOBIN 0.3 % (0-3); HCO3 (ACTUAL BICARBONATE) 23.3 MEQ/L (23-27); HEMOBLOGIN CONTENT 11.5 G/DL (12-16); INSTRUMENT SERIAL # 35151; METHEMOGLOBIN 0.7 % (0-3); MODE CMV; O2 CONTENT 16.2 VOL% (18-24); OPERATOR ID 35798; PCO2 (CO2 TENSION) 39 MMHG (35-45); PO2 (O2 TENSION) 173 MMHG (79-93); SAMPLE Arterial; TIDAL VOLUME 500 ML; pH 7.39 (7.37-7.43)
[2016-09-13 09:26] LABS: BASOPHILS 0.3 %; BASOPHILS ABSOLUTE 0.04 10/3/uL (0.0-0.16); EOSINOPHILS 0.6 %; HEMATOCRIT 37.4 % (36.0-48.0); HEMOGLOBIN 12.2 g/dL (12.0-16.0); IMMATURE GRANULOCYTES 0.8 %; IMMATURE GRANULOCYTES ABSOLUTE 0.12 10/3/uL (0.0-0.11); LYMPHOCYTES 9.1 %; LYMPHOCYTES ABSOLUTE 1.44 10/3/uL (0.67-4.30); MEAN CORPUS HGB CONC 32.6 g/dL (32.0-36.0); MEAN PLATELET VOLUME 8.4 fL (9.2-13.0); MONOCYTES 3.5 %; MONOCYTES ABSOLUTE 0.55 10/3/uL (0.21-1.20); NEUTROPHILS 85.7 %; NEUTROPHILS ABSOLUTE 13.57 10/3/uL (2.02-8.40); RBC DISTRIBUTION WIDTH 13.8 % (12.0-16.0)
[2016-09-13 09:27] LABS: MANUAL DIFF NO %; PLATELET COUNT 277 10/3/uL (150-400); WHITE BLOOD CELLS 15.8 10/3/uL (4.5-10.5)
[2016-09-13 09:40] LABS: CALCIUM, SERUM 8.3 MG/DL (8.5-10.4); CHLORIDE, SERUM 108 MMOL/L (96-112); CO2 (CARBON DIOXIDE) 26 MMOL/L (24-34); CREATININE 1.37 MG/DL (0.55-1.02); GFR AFRICAN AMERICAN 51 ML/MIN (>=60); GFR NON AFRICAN AMERICAN 44 ML/MIN (>=60); POTASSIUM, SERUM 4.1 MMOL/L (3.5-5.3); SODIUM, SERUM 144 MMOL/L (135-148)
[2016-09-13 09:42] LABS: BUN (BLOOD UREA NITROGEN) 28 MG/DL (6-23); GLUCOSE, SERUM 68 MG/DL (60-99)
[2016-09-13 11:12] LABS: BE (BASE EXCESS) -0.3 MEQ/L (0 +/- 2.5); CARBOXYHEMOGLOBIN 0.3 % (0-3); HCO3 (ACTUAL BICARBONATE) 22.4 MEQ/L (23-27); HEMOBLOGIN CONTENT 13.5 G/DL (12-16); INSTRUMENT SERIAL # 35151; METHEMOGLOBIN 0.4 % (0-3); O2 CONTENT 16.9 VOL% (18-24); PCO2 (CO2 TENSION) 31 MMHG (35-45); PO2 (O2 TENSION) 53 MMHG (79-93); SAMPLE Arterial; pH 7.48 (7.37-7.43)
[2016-09-13 11:13] LABS: ALLENS TEST Pos
[2016-09-14 05:13] LABS: BUN (BLOOD UREA NITROGEN) 31 MG/DL (6-23); CALCIUM, SERUM 7.9 MG/DL (8.5-10.4); CHLORIDE, SERUM 106 MMOL/L (96-112); CO2 (CARBON DIOXIDE) 26 MMOL/L (24-34); CREATININE 1.54 MG/DL (0.55-1.02); GFR AFRICAN AMERICAN 45 ML/MIN (>=60); GFR NON AFRICAN AMERICAN 38 ML/MIN (>=60); GLUCOSE, SERUM 80 MG/DL (60-99); POTASSIUM, SERUM 4.1 MMOL/L (3.5-5.3); SODIUM, SERUM 142 MMOL/L (135-148)
[2016-09-14 08:32] LABS: BASOPHILS 0.2 %; BASOPHILS ABSOLUTE 0.03 10/3/uL (0.0-0.16); EOSINOPHILS 1.3 %; EOSINOPHILS ABSOLUTE 0.19 10/3/uL (0.0-0.53); HEMATOCRIT 29.5 % (36.0-48.0); HEMOGLOBIN 9.5 g/dL (12.0-16.0); IMMATURE GRANULOCYTES 0.4 %; IMMATURE GRANULOCYTES ABSOLUTE 0.06 10/3/uL (0.0-0.11); LYMPHOCYTES 13.8 %; LYMPHOCYTES ABSOLUTE 1.95 10/3/uL (0.67-4.30); MEAN CORPUS HGB CONC 32.2 g/dL (32.0-36.0); MEAN CORPUSCULAR HEMOGLOB 28.9 pg (26.0-34.0); MEAN CORPUSCULAR VOLUME 89.7 fL (80-100); MEAN PLATELET VOLUME 8.8 fL (9.2-13.0); MONOCYTES 7.3 %; MONOCYTES ABSOLUTE 1.04 10/3/uL (0.21-1.20); PLATELET COUNT 232 10/3/uL (150-400); RBC DISTRIBUTION WIDTH 14.6 % (12.0-16.0); RED CELL COUNT 3.29 10/6/uL (4.0-5.6); WHITE BLOOD CELLS 14.2 10/3/uL (4.5-10.5)
[2016-09-14 08:33] LABS: MANUAL DIFF NO %
[2016-09-14 10:41] LABS: PROCALCITONIN 12.61 ng/mL (<0.5)
[2016-09-15 05:25] LABS: BUN (BLOOD UREA NITROGEN) 29 MG/DL (6-23); CALCIUM, SERUM 7.7 MG/DL (8.5-10.4); CHLORIDE, SERUM 105 MMOL/L (96-112); CO2 (CARBON DIOXIDE) 25 MMOL/L (24-34); CREATININE 1.53 MG/DL (0.55-1.02); GFR AFRICAN AMERICAN 45 ML/MIN (>=60); GFR NON AFRICAN AMERICAN 39 ML/MIN (>=60); PHOSPHORUS, SERUM 2.8 MG/DL (2.5-4.5); POTASSIUM, SERUM 4.2 MMOL/L (3.5-5.3); SODIUM, SERUM 140 MMOL/L (135-148)
[2016-09-15 05:27] LABS: GLUCOSE, SERUM 103 MG/DL (60-99)
[2016-09-15 05:30] LABS: BASOPHILS 0.2 %; BASOPHILS ABSOLUTE 0.02 10/3/uL (0.0-0.16); EOSINOPHILS 1.7 %; EOSINOPHILS ABSOLUTE 0.22 10/3/uL (0.0-0.53); HEMATOCRIT 27.4 % (36.0-48.0); HEMOGLOBIN 8.9 g/dL (12.0-16.0); IMMATURE GRANULOCYTES 0.6 %; IMMATURE GRANULOCYTES ABSOLUTE 0.08 10/3/uL (0.0-0.11); LYMPHOCYTES 10.8 %; LYMPHOCYTES ABSOLUTE 1.44 10/3/uL (0.67-4.30); MEAN CORPUS HGB CONC 32.5 g/dL (32.0-36.0); MEAN CORPUSCULAR HEMOGLOB 29.3 pg (26.0-34.0); MEAN CORPUSCULAR VOLUME 90.1 fL (80-100); MEAN PLATELET VOLUME 8.4 fL (9.2-13.0); MONOCYTES 6.2 %; MONOCYTES ABSOLUTE 0.83 10/3/uL (0.21-1.20); NEUTROPHILS 80.5 %; NEUTROPHILS ABSOLUTE 10.72 10/3/uL (2.02-8.40); PLATELET COUNT 221 10/3/uL (150-400); RBC DISTRIBUTION WIDTH 14.2 % (12.0-16.0); RED CELL COUNT 3.04 10/6/uL (4.0-5.6); WHITE BLOOD CELLS 13.3 10/3/uL (4.5-10.5)
[2016-09-15 05:34] LABS: MANUAL DIFF NO %
[2016-09-16 05:13] LABS: BASOPHILS 0.2 %; BASOPHILS ABSOLUTE 0.03 10/3/uL (0.0-0.16); EOSINOPHILS 2.3 %; EOSINOPHILS ABSOLUTE 0.28 10/3/uL (0.0-0.53); HEMOGLOBIN 9.4 g/dL (12.0-16.0); IMMATURE GRANULOCYTES ABSOLUTE 0.12 10/3/uL (0.0-0.11); LYMPHOCYTES 9.8 %; LYMPHOCYTES ABSOLUTE 1.18 10/3/uL (0.67-4.30); MEAN CORPUS HGB CONC 32.4 g/dL (32.0-36.0); MEAN CORPUSCULAR VOLUME 89.5 fL (80-100); MEAN PLATELET VOLUME 7.9 fL (9.2-13.0); MONOCYTES 6.5 %; MONOCYTES ABSOLUTE 0.78 10/3/uL (0.21-1.20); NEUTROPHILS 80.2 %; NEUTROPHILS ABSOLUTE 9.67 10/3/uL (2.02-8.40); PLATELET COUNT 261 10/3/uL (150-400); RBC DISTRIBUTION WIDTH 13.7 % (12.0-16.0); RED CELL COUNT 3.24 10/6/uL (4.0-5.6); WHITE BLOOD CELLS 12.1 10/3/uL (4.5-10.5)
[2016-09-16 05:18] LABS: MANUAL DIFF NO %
[2016-09-16 05:28] LABS: BUN (BLOOD UREA NITROGEN) 30 MG/DL (6-23); CHLORIDE, SERUM 101 MMOL/L (96-112); CO2 (CARBON DIOXIDE) 28 MMOL/L (24-34); CREATININE 1.38 MG/DL (0.55-1.02); GFR AFRICAN AMERICAN 51 ML/MIN (>=60); GFR NON AFRICAN AMERICAN 44 ML/MIN (>=60); GLUCOSE, SERUM 91 MG/DL (60-99); PHOSPHORUS, SERUM 2.8 MG/DL (2.5-4.5); POTASSIUM, SERUM 3.7 MMOL/L (3.5-5.3); SODIUM, SERUM 140 MMOL/L (135-148)
[2016-09-17 05:15] LABS: BASOPHILS 0.3 %; BASOPHILS ABSOLUTE 0.03 10/3/uL (0.0-0.16); EOSINOPHILS 3.5 %; EOSINOPHILS ABSOLUTE 0.32 10/3/uL (0.0-0.53); HEMATOCRIT 28.8 % (36.0-48.0); HEMOGLOBIN 9.2 g/dL (12.0-16.0); IMMATURE GRANULOCYTES 1.8 %; IMMATURE GRANULOCYTES ABSOLUTE 0.17 10/3/uL (0.0-0.11); LYMPHOCYTES 11.9 %; LYMPHOCYTES ABSOLUTE 1.09 10/3/uL (0.67-4.30); MANUAL DIFF NO %; MEAN CORPUS HGB CONC 31.9 g/dL (32.0-36.0); MEAN CORPUSCULAR VOLUME 90.9 fL (80-100); MEAN PLATELET VOLUME 8.1 fL (9.2-13.0); MONOCYTES 10.6 %; MONOCYTES ABSOLUTE 0.97 10/3/uL (0.21-1.20); NEUTROPHILS 71.9 %; NEUTROPHILS ABSOLUTE 6.61 10/3/uL (2.02-8.40); PLATELET COUNT 273 10/3/uL (150-400); RBC DISTRIBUTION WIDTH 13.7 % (12.0-16.0); RED CELL COUNT 3.17 10/6/uL (4.0-5.6); WHITE BLOOD CELLS 9.2 10/3/uL (4.5-10.5)
[2016-09-17 05:43] LABS: A/G RATIO 0.4 (0.7-1.9); ALBUMIN 1.9 G/DL (3.5-5.0); ALKALINE PHOSPHATASE 92 U/L (45-117); BUN (BLOOD UREA NITROGEN) 29 MG/DL (6-23); CHLORIDE, SERUM 104 MMOL/L (96-112); CO2 (CARBON DIOXIDE) 25 MMOL/L (24-34); CREATININE 1.13 MG/DL (0.55-1.02); FREE T4 1.18 NG/DL (0.76-1.46); GFR AFRICAN AMERICAN 65 ML/MIN (>=60); GFR NON AFRICAN AMERICAN 56 ML/MIN (>=60); GLOBULIN 4.6 G/DL (2.5-4.1); GLUCOSE, SERUM 149 MG/DL (60-99); PHOSPHORUS, SERUM 2.6 MG/DL (2.5-4.5); SGOT(AST) 20 U/L (5-40); SGPT(ALT) 24 U/L (5-65); SODIUM, SERUM 140 MMOL/L (135-148); TOTAL BILIRUBIN 0.2 MG/DL (0-1.2); TOTAL PROTEIN 6.5 G/DL (6.0-8.5)
[2016-09-17 06:47] LABS: PROCALCITONIN 2.07 ng/mL (<0.5)
[2016-09-18 05:00] LABS: BASOPHILS 0.5 %; BASOPHILS ABSOLUTE 0.05 10/3/uL (0.0-0.16); EOSINOPHILS 2.7 %; EOSINOPHILS ABSOLUTE 0.28 10/3/uL (0.0-0.53); HEMATOCRIT 29.5 % (36.0-48.0); HEMOGLOBIN 9.3 g/dL (12.0-16.0); IMMATURE GRANULOCYTES ABSOLUTE 0.31 10/3/uL (0.0-0.11); LYMPHOCYTES 13.6 %; MEAN CORPUS HGB CONC 31.5 g/dL (32.0-36.0); MEAN CORPUSCULAR HEMOGLOB 28.2 pg (26.0-34.0); MEAN CORPUSCULAR VOLUME 89.4 fL (80-100); MEAN PLATELET VOLUME 8.3 fL (9.2-13.0); MONOCYTES 9.7 %; NEUTROPHILS 70.5 %; NEUTROPHILS ABSOLUTE 7.23 10/3/uL (2.02-8.40); PLATELET COUNT 251 10/3/uL (150-400); RBC DISTRIBUTION WIDTH 13.9 % (12.0-16.0); WHITE BLOOD CELLS 10.3 10/3/uL (4.5-10.5)
[2016-09-18 05:02] LABS: MANUAL DIFF NO %
[2016-09-18 05:11] LABS: CALCIUM, SERUM 7.7 MG/DL (8.5-10.4); CHLORIDE, SERUM 105 MMOL/L (96-112); CO2 (CARBON DIOXIDE) 23 MMOL/L (24-34); CREATININE 0.98 MG/DL (0.55-1.02); GFR AFRICAN AMERICAN 77 ML/MIN (>=60); GFR NON AFRICAN AMERICAN 66 ML/MIN (>=60); PHOSPHORUS, SERUM 2.7 MG/DL (2.5-4.5); SODIUM, SERUM 141 MMOL/L (135-148)
[2016-09-18 05:30] LABS: BUN (BLOOD UREA NITROGEN) 22 MG/DL (6-23); GLUCOSE, SERUM 180 MG/DL (60-99); POTASSIUM, SERUM 4.1 MMOL/L (3.5-5.3)
[2016-09-19 04:03] LABS: BASOPHILS 0.6 %; BASOPHILS ABSOLUTE 0.07 10/3/uL (0.0-0.16); EOSINOPHILS 2.6 %; EOSINOPHILS ABSOLUTE 0.32 10/3/uL (0.0-0.53); HEMATOCRIT 30.6 % (36.0-48.0); HEMOGLOBIN 9.8 g/dL (12.0-16.0); IMMATURE GRANULOCYTES 2.4 %; IMMATURE GRANULOCYTES ABSOLUTE 0.29 10/3/uL (0.0-0.11); LYMPHOCYTES 13.5 %; LYMPHOCYTES ABSOLUTE 1.64 10/3/uL (0.67-4.30); MEAN CORPUSCULAR HEMOGLOB 28.9 pg (26.0-34.0); MEAN CORPUSCULAR VOLUME 90.3 fL (80-100); MEAN PLATELET VOLUME 7.7 fL (9.2-13.0); MONOCYTES 7.9 %; MONOCYTES ABSOLUTE 0.96 10/3/uL (0.21-1.20); NEUTROPHILS ABSOLUTE 8.87 10/3/uL (2.02-8.40); PLATELET COUNT 283 10/3/uL (150-400); RBC DISTRIBUTION WIDTH 13.9 % (12.0-16.0); RED CELL COUNT 3.39 10/6/uL (4.0-5.6); WHITE BLOOD CELLS 12.2 10/3/uL (4.5-10.5)
[2016-09-19 04:04] LABS: MANUAL DIFF NO %
[2016-09-19 04:06] LABS: CALCIUM, SERUM 8.1 MG/DL (8.5-10.4); CHLORIDE, SERUM 108 MMOL/L (96-112); CO2 (CARBON DIOXIDE) 23 MMOL/L (24-34); CREATININE 0.94 MG/DL (0.55-1.02); GFR AFRICAN AMERICAN 81 ML/MIN (>=60); GFR NON AFRICAN AMERICAN 70 ML/MIN (>=60); GLUCOSE, SERUM 186 MG/DL (60-99); PHOSPHORUS, SERUM 2.4 MG/DL (2.5-4.5); POTASSIUM, SERUM 3.5 MMOL/L (3.5-5.3); SODIUM, SERUM 144 MMOL/L (135-148)
[2016-09-19 04:07] LABS: BUN (BLOOD UREA NITROGEN) 17 MG/DL (6-23)
[2016-09-19 23:39] LABS: ASCORBIC ACID (UR NOT ORDER) NEG (NEG); BILIRUBIN, URINE NEGATIVE (NEG); KETONE, URINE 20 MG/DL (NEG); LEUKOCYTE ESTERASE(NOT OR MOD (NEG); WBC (NOT ORDERED) (RFLEX) 88 (0-5)
[2016-09-20 03:49] LABS: BASOPHILS 0.2 %; BASOPHILS ABSOLUTE 0.02 10/3/uL (0.0-0.16); EOSINOPHILS 2.4 %; EOSINOPHILS ABSOLUTE 0.25 10/3/uL (0.0-0.53); HEMATOCRIT 28.3 % (36.0-48.0); HEMOGLOBIN 9.1 g/dL (12.0-16.0); IMMATURE GRANULOCYTES 2.3 %; IMMATURE GRANULOCYTES ABSOLUTE 0.24 10/3/uL (0.0-0.11); LYMPHOCYTES ABSOLUTE 1.55 10/3/uL (0.67-4.30); MEAN CORPUS HGB CONC 32.2 g/dL (32.0-36.0); MEAN CORPUSCULAR HEMOGLOB 29.2 pg (26.0-34.0); MEAN CORPUSCULAR VOLUME 90.7 fL (80-100); MEAN PLATELET VOLUME 7.4 fL (9.2-13.0); MONOCYTES 6.4 %; MONOCYTES ABSOLUTE 0.66 10/3/uL (0.21-1.20); NEUTROPHILS 73.7 %; NEUTROPHILS ABSOLUTE 7.58 10/3/uL (2.02-8.40); PLATELET COUNT 242 10/3/uL (150-400); RED CELL COUNT 3.12 10/6/uL (4.0-5.6); WHITE BLOOD CELLS 10.3 10/3/uL (4.5-10.5)
[2016-09-20 03:51] LABS: MANUAL DIFF NO %
[2016-09-20 04:02] LABS: ALBUMIN 1.9 G/DL (3.5-5.0); BUN (BLOOD UREA NITROGEN) 18 MG/DL (6-23); CALCIUM, SERUM 7.8 MG/DL (8.5-10.4); CHLORIDE, SERUM 113 MMOL/L (96-112); CREATININE 1.02 MG/DL (0.55-1.02); GFR AFRICAN AMERICAN 73 ML/MIN (>=60); GFR NON AFRICAN AMERICAN 63 ML/MIN (>=60); GLUCOSE, SERUM 178 MG/DL (60-99); PHOSPHORUS, SERUM 3.1 MG/DL (2.5-4.5); POTASSIUM, SERUM 3.6 MMOL/L (3.5-5.3); SODIUM, SERUM 149 MMOL/L (135-148)
[2016-09-20 04:04] LABS: CO2 (CARBON DIOXIDE) 28 MMOL/L (24-34)
[2016-09-20 06:08] LABS: PROCALCITONIN 0.41 ng/mL (<0.5)
[2016-09-21 06:34] LABS: BASOPHILS 0.4 %; BASOPHILS ABSOLUTE 0.04 10/3/uL (0.0-0.16); EOSINOPHILS 3.4 %; EOSINOPHILS ABSOLUTE 0.32 10/3/uL (0.0-0.53); HEMATOCRIT 25.5 % (36.0-48.0); HEMOGLOBIN 8.4 g/dL (12.0-16.0); IMMATURE GRANULOCYTES 1.9 %; IMMATURE GRANULOCYTES ABSOLUTE 0.18 10/3/uL (0.0-0.11); LYMPHOCYTES 20.5 %; LYMPHOCYTES ABSOLUTE 1.94 10/3/uL (0.67-4.30); MEAN CORPUS HGB CONC 32.9 g/dL (32.0-36.0); MEAN CORPUSCULAR HEMOGLOB 29.1 pg (26.0-34.0); MEAN CORPUSCULAR VOLUME 88.2 fL (80-100); MEAN PLATELET VOLUME 7.4 fL (9.2-13.0); MONOCYTES ABSOLUTE 0.57 10/3/uL (0.21-1.20); NEUTROPHILS 67.8 %; NEUTROPHILS ABSOLUTE 6.42 10/3/uL (2.02-8.40); PLATELET COUNT 196 10/3/uL (150-400); RBC DISTRIBUTION WIDTH 14.2 % (12.0-16.0); RED CELL COUNT 2.89 10/6/uL (4.0-5.6); WHITE BLOOD CELLS 9.5 10/3/uL (4.5-10.5)
[2016-09-21 06:35] LABS: MANUAL DIFF NO %
[2016-09-21 06:46] LABS: BUN (BLOOD UREA NITROGEN) 17 MG/DL (6-23); CALCIUM, SERUM 7.6 MG/DL (8.5-10.4); CHLORIDE, SERUM 108 MMOL/L (96-112); CO2 (CARBON DIOXIDE) 25 MMOL/L (24-34); CREATININE 0.82 MG/DL (0.55-1.02); GFR AFRICAN AMERICAN 95 ML/MIN (>=60); GFR NON AFRICAN AMERICAN 82 ML/MIN (>=60); POTASSIUM, SERUM 3.4 MMOL/L (3.5-5.3)
[2016-09-21 06:48] LABS: GLUCOSE, SERUM 99 MG/DL (60-99); SODIUM, SERUM 142 MMOL/L (135-148)
[2016-09-21 10:36] LABS: RETICULOCYTE COUNT ABSOLUTE 57.8 10/3/uL (20.2-119.8)
[2016-09-21 12:51] LABS: FERRITIN 248 NG/ML (8-252); IRON BINDING CAPACITY 154 MCG/DL (225-410); IRON, SERUM 40 MCG/DL (35-150)
[2016-09-21 12:53] LABS: FOLATE 5.7 NG/ML (>5.2)
[2016-09-22 07:22] LABS: CALCIUM, SERUM 7.9 MG/DL (8.5-10.4); CHLORIDE, SERUM 108 MMOL/L (96-112); CREATININE 0.75 MG/DL (0.55-1.02); GFR AFRICAN AMERICAN 106 ML/MIN (>=60); GFR NON AFRICAN AMERICAN 92 ML/MIN (>=60); PHOSPHORUS, SERUM 2.9 MG/DL (2.5-4.5); SODIUM, SERUM 142 MMOL/L (135-148)
[2016-09-22 07:23] LABS: BUN (BLOOD UREA NITROGEN) 13 MG/DL (6-23); CO2 (CARBON DIOXIDE) 19 MMOL/L (24-34); GLUCOSE, SERUM 76 MG/DL (60-99); POTASSIUM, SERUM 4.1 MMOL/L (3.5-5.3)
[2016-09-22 07:29] LABS: BASOPHILS 0.3 %; BASOPHILS ABSOLUTE 0.03 10/3/uL (0.0-0.16); EOSINOPHILS 3.5 %; HEMATOCRIT 26.7 % (36.0-48.0); HEMOGLOBIN 8.6 g/dL (12.0-16.0); IMMATURE GRANULOCYTES 1.6 %; IMMATURE GRANULOCYTES ABSOLUTE 0.14 10/3/uL (0.0-0.11); LYMPHOCYTES ABSOLUTE 1.47 10/3/uL (0.67-4.30); MEAN CORPUS HGB CONC 32.2 g/dL (32.0-36.0); MEAN CORPUSCULAR HEMOGLOB 28.5 pg (26.0-34.0); MEAN CORPUSCULAR VOLUME 88.4 fL (80-100); MEAN PLATELET VOLUME 7.4 fL (9.2-13.0); MONOCYTES 7.1 %; MONOCYTES ABSOLUTE 0.61 10/3/uL (0.21-1.20); NEUTROPHILS 70.5 %; PLATELET COUNT 193 10/3/uL (150-400); RED CELL COUNT 3.02 10/6/uL (4.0-5.6); WHITE BLOOD CELLS 8.7 10/3/uL (4.5-10.5)
[2016-09-22 07:31] LABS: MANUAL DIFF NO %
[2016-11-27] MEDS ORDERED: NATEGLINIDE PO (16:48)
[2016-11-27] MEDS ORDERED: LEVOTHYROXINE PO (16:50)
[2016-11-27] MEDS ORDERED: TOUJEO SOLOSTAR SQ (16:50)
[2016-11-27] MEDS ORDERED: NORVASC PO (16:50)
[2016-11-27] MEDS ORDERED: METFORMIN PO (16:51)
[2016-11-27] MEDS ORDERED: LISINOPRIL HCTZ PO (16:51)
[2016-11-27] MEDS ORDERED: METOPROLOL TARTRATE PO (16:52)
[2016-11-27] MEDS ORDERED: PHENYTOIN SOD EXT PO ×2 (16:53)
[2016-11-27] MEDS ORDERED: ROSUVASTATIN CALCIUM PO (16:54)
[2016-11-27] MEDS ORDERED: ASPIRIN PO (16:54)
[2016-11-27] MEDS ORDERED: SPIRONOLACTONE PO (16:54)
[2016-11-27] MEDS ORDERED: HUMALOG KWIKPEN SQ (16:55)
[2016-11-27] MEDS ORDERED: TIMOLOL EYE DROP OPH (16:56)
[2016-11-27] MEDS ORDERED: VICTOZA SQ (16:57)
[2016-11-27] MEDS ORDERED: LEVEMIR SC (16:58)
[2016-11-27] MEDS ORDERED: *UNABLE2 (16:59)
[2016-11-30] MEDS ORDERED: STARLIX120 PO (09:49)
[2016-11-30] MEDS ORDERED: TOUJEO SQ (09:50)
[2016-11-30] MEDS ORDERED: NORV10 PO (09:52)
[2016-11-30] MEDS ORDERED: ZESTORETIC PO (09:53)
[2016-11-30] MEDS ORDERED: SYN1 PO (09:53)
[2016-11-30] MEDS ORDERED: GLUCPH8 PO (09:54)
[2016-11-30] MEDS ORDERED: LOP100 PO (09:55)
[2016-11-30] MEDS ORDERED: D100 PO ×2 (09:56→09:57)
[2016-11-30] MEDS ORDERED: HALF81 PO (09:57)
[2016-11-30] MEDS ORDERED: CRESTOR40 MG PO (09:58)
[2016-11-30] MEDS ORDERED: SPIRO25 PO (09:59)
[2016-11-30] MEDS ORDERED: HUMALOGPEN SC (10:00)
[2016-11-30] MEDS ORDERED: TIMOLOL MAL0.5 % OPH (10:01)
[2016-11-30] MEDS ORDERED: VICTOZA18 MG/3 ML SC (10:02)
== END 2016-09-23 10:03 | DRG 853 ==
LOC: ER 11:37 → 4SO 20:15 → 1SO 09-08 04:47 → CCU 09-12 08:34 → IMCU 09-19 13:55 → 4SO 09-20 15:26
PROVIDERS: Emergency Medicine; Internal Medicine; Internal Medicine Critical Care Medicine; Internal Medicine Infectious Disease; Nurse Practitioner Family
DX: A40.1 Sepsis due to streptococcus, group B (principal); J96.01 Acute respiratory failure with hypoxia; J69.0 Pneumonitis due to inhalation of food and vomit; G92 Toxic encephalopathy; E11.42 Type 2 diabetes mellitus with diabetic polyneuropathy; E11.21 Type 2 diabetes mellitus with diabetic nephropathy; K56.7 Ileus, unspecified; T17.920A Food in respiratory tract, part unspecified causing asphyxiation, initial encounter; N18.3 Chronic kidney disease, stage 3 (moderate); Z68.41 Body mass index [BMI] 40.0-44.9, adult; M86.679 Other chronic osteomyelitis, unspecified ankle and foot; M86.8X7 Other osteomyelitis, ankle and foot; E11.621 Type 2 diabetes mellitus with foot ulcer; E11.69 Type 2 diabetes mellitus with other specified complication; I12.9 Hypertensive chronic kidney disease with stage 1 through stage 4 chronic kidney disease, or unspecified chronic kidney disease; G40.909 Epilepsy, unspecified, not intractable, without status epilepticus; E78.5 Hyperlipidemia, unspecified; Z91.19 Patient's noncompliance with other medical treatment and regimen; B95.1 Streptococcus, group B, as the cause of diseases classified elsewhere; B96.5 Pseudomonas (aeruginosa) (mallei) (pseudomallei) as the cause of diseases classified elsewhere; X58.XXXA Exposure to other specified factors, initial encounter; Y92.230 Patient room in hospital as the place of occurrence of the external cause; E03.9 Hypothyroidism, unspecified; F41.9 Anxiety disorder, unspecified; F70 Mild intellectual disabilities; E66.9 Obesity, unspecified; E11.649 Type 2 diabetes mellitus with hypoglycemia without coma; B96.1 Klebsiella pneumoniae [K. pneumoniae] as the cause of diseases classified elsewhere; R53.81 Other malaise
CPT/HCPCS: 31720; 36415; 36569; 36600; 70450; 71010; 71250; 73718-LT; 74000; 80048; 80053; 80069; 80185; 81001; 82248; 82330; 82607; 82728; 82746; 82803; 82805; 82947; 82962; 83036; 83540; 83550; 83605; 83615; 83735; 83880; 84100; 84132; 84134; 84145; 84295; 84439; 84443; 85014; 85025; 85045; 85610; 86850; 86900; 86901; 87040; 87070; 87077; 87086; 87150; 87186; 87205; 87641; 88305; 92950; 93005; 94002; 94640; 94660; 94770; 96365; 97110-GP; 97116-GP; 97162-GP; 97530-GP; 99285; A9270-GY; C1751; C1887; C8929; G8978-CM-GP; G8979-CK-GP; J0330; J0360; J2250; J2405; J2543; J2550; J2765; J3010; J3370; Q9957